=== PATIENT | male | born 1950 | race Caucasian/White ===

== ENCOUNTER 2023-01-03 04:56 | Day surgery (SDC) | payer OTHER ==
[2023-01-01 09:33] VITALS: BMI 23.0
[~2023-01-03 04:56] MED LIST: ACETAMINOPHEN 325 MG TABLET (FP) PO PRN; CHONDROITIN SU A/HYALUR SOD 1 KIT IO ONE; PHENYLEPHRINE/KETOROLAC 4 ML VIAL IO ONE
[2023-01-03] MEDS ORDERED: CYCLOPENTOLATE HCL 1% OPHTH SOLN 2 ML BOTTLE ONE (06:30)
[2023-01-03] MEDS ORDERED: PHENYLEPHRINE 2.5% OPTHALMIC DROP 2ML BOTTLE ONE (06:30)
[2023-01-03] MEDS ORDERED: KETOROLAC TROMETHAMINE 0.5% EYE DROP 1 DROP DROPS ONE (06:30)
[2023-01-03] MEDS ORDERED: TROPICAMIDE 1% OPHTH SOLN 15 ML BOTTLE ONE (06:30)
[2023-01-03] MEDS ORDERED: OFLOXACIN 0.3% OPHTHALMIC SOLUTION 5 ML BOTTLE ONE (06:31)
[2023-01-03 06:32] VITALS: RESP 20; TEMP 98.2
[2023-01-03] MEDS ORDERED: TETRACAINE 0.5% OPHTH SOLN 2 ML BOTTLE ONE (07:20)
[2023-01-03] MEDS ORDERED: PHENYLEPHRINE/KETOROLAC 4 ML VIAL IO ONE ×3 (07:20→09:52)
[2023-01-03] MEDS ORDERED: BSS (NA/CA/MG/K) BALANCED SALT SOLUTION OPHTH SOLN 15 ML BOTTLE ONE (07:20)
[2023-01-03] MEDS ORDERED: POVIDONE-IODINE 5% OPHTHALMIC PREP 30 ML SOLUTION ONE (07:20)
[2023-01-03] MEDS: CYCLOPENTOLATE HCL 1% OPHTH SOLN 2 ML BOTTLE OP SCH ×3 (07:21→07:57)
[2023-01-03] MEDS: PHENYLEPHRINE 2.5% OPHTH SOLN 15 ML BOTTLE OP SCH ×3 (07:22→07:57)
[2023-01-03] MEDS: TROPICAMIDE 1% OPHTH SOLN 15 ML BOTTLE OP SCH ×3 (07:22→07:57)
[2023-01-03] MEDS: KETOROLAC TROMETHAMINE 0.5% EYE DROP 1 DROP DROPS OP SCH ×3 (07:22→07:57)
[2023-01-03] MEDS: OFLOXACIN 0.3% OPHTHALMIC SOLUTION 5 ML BOTTLE OP SCH ×3 (07:22→07:58)
[2023-01-03] MEDS ORDERED: TETRACAINE 0.5% OPHTH SOLN 2 ML BOTTLE TP ONE (09:34)
[2023-01-03] MEDS ORDERED: MIDAZOLAM HCL 2 MG/2 ML SINGLE DOSE VIAL ONE (09:35)
[2023-01-03] MEDS ORDERED: POVIDONE-IODINE 5% OPHTHALMIC PREP 30 ML SOLUTION OS ONE (09:36)
[2023-01-03] MEDS ORDERED: LIDOCAINE HCL 1% PRESERVATIVE FREE - 30ML VIAL IO ONE (09:42)
[2023-01-03] MEDS ORDERED: BSS (NA/CA/MG/K) BALANCED SALT SOLUTION OPHTH SOLN 15 ML BOTTLE OS ONE (09:42)
[2023-01-03] MEDS ORDERED: CHONDROITIN SU A/HYALUR SOD 1 KIT IO ONE ×2 (09:50→09:52)
[2023-01-03 11:16] VITALS: BP 142/75; PULSE 73
== END 2023-01-03 12:00 | disposition home or self-care (01) ==
LOC: JASU-SURG 04:56
PROVIDERS: ATTEND Ophthalmology
PROC: 08RK3JZ Replacement of Left Lens with Synthetic Substitute, Percutaneous Approach (ICD-10-PCS; principal; 2023-01-03 09:00)
DX: H26.9 Unspecified cataract (principal)
CPT/HCPCS: J1097; V2632

== ENCOUNTER 2023-01-17 04:33 | Day surgery (SDC) | payer OTHER ==
[2023-01-16 14:32] VITALS: BMI 23.0
[~2023-01-17 04:33] MED LIST changes: -CHONDROITIN SU A/HYALUR SOD 1 KIT IO ONE; -PHENYLEPHRINE/KETOROLAC 4 ML VIAL IO ONE
[2023-01-17] MEDS ORDERED: POVIDONE-IODINE 5% OPHTHALMIC PREP 30 ML SOLUTION ONE (07:28)
[2023-01-17] MEDS ORDERED: TETRACAINE 0.5% OPHTH SOLN 2 ML BOTTLE ONE (07:28)
[2023-01-17] MEDS ORDERED: PHENYLEPHRINE/KETOROLAC 4 ML VIAL IO ONE ×2 (07:28→12:04)
[2023-01-17] MEDS ORDERED: LIDOCAINE HCL/PF 1% SDV 5ML VIAL ONE (07:38)
[2023-01-17] MEDS ORDERED: CYCLOPENTOLATE HCL 1% OPHTH SOLN 2 ML BOTTLE OP SCH (08:15)
[2023-01-17] MEDS ORDERED: PHENYLEPHRINE 2.5% OPHTH SOLN 15 ML BOTTLE OP SCH (08:15)
[2023-01-17] MEDS ORDERED: TROPICAMIDE 1% OPHTH SOLN 15 ML BOTTLE OP SCH (08:15)
[2023-01-17] MEDS ORDERED: OFLOXACIN 0.3% OPHTHALMIC SOLUTION 5 ML BOTTLE OP SCH (08:15)
[2023-01-17] MEDS ORDERED: KETOROLAC TROMETHAMINE 0.5% EYE DROP 1 DROP DROPS OP SCH (08:15)
[2023-01-17 08:54] VITALS: RESP 18
[2023-01-17] MEDS ORDERED: TROPICAMIDE 1% OPHTH SOLN 15 ML BOTTLE ONE (09:14)
[2023-01-17] MEDS ORDERED: CYCLOPENTOLATE HCL 1% OPHTH SOLN 2 ML BOTTLE ONE (09:14)
[2023-01-17] MEDS ORDERED: OFLOXACIN 0.3% OPHTHALMIC SOLUTION 5 ML BOTTLE ONE (09:14)
[2023-01-17] MEDS ORDERED: KETOROLAC TROMETHAMINE 0.5% EYE DROP 1 DROP DROPS ONE (09:14)
[2023-01-17] MEDS ORDERED: PHENYLEPHRINE 2.5% OPTHALMIC DROP 2ML BOTTLE ONE (09:14)
[2023-01-17] MEDS ORDERED: OFLOXACIN 0.3% OPHTHALMIC SOLUTION 5 ML BOTTLE OD ONE ×3 (09:20→09:41)
[2023-01-17] MEDS ORDERED: TROPICAMIDE 1% OPHTH SOLN 15 ML BOTTLE OD ONE ×3 (09:20→09:41)
[2023-01-17] MEDS ORDERED: CYCLOPENTOLATE HCL 1% OPHTH SOLN 2 ML BOTTLE OD ONE ×3 (09:20→09:41)
[2023-01-17] MEDS ORDERED: KETOROLAC TROMETHAMINE 0.5% EYE DROP 1 DROP DROPS OD ONE ×3 (09:20→09:41)
[2023-01-17] MEDS ORDERED: PHENYLEPHRINE 2.5% OPHTH SOLN 15 ML BOTTLE OD ONE ×3 (09:20→09:41)
[2023-01-17] MEDS ORDERED: MIDAZOLAM HCL 2 MG/2 ML SINGLE DOSE VIAL ONE (11:29)
[2023-01-17] MEDS ORDERED: TETRACAINE 0.5% OPHTH SOLN 2 ML BOTTLE TP ONE (11:46)
[2023-01-17] MEDS ORDERED: POVIDONE-IODINE 5% OPHTHALMIC PREP 30 ML SOLUTION OD ONE (11:48)
[2023-01-17] MEDS ORDERED: BSS (NA/CA/MG/K) BALANCED SALT SOLUTION OPHTH SOLN 15 ML BOTTLE OD ONE (11:56)
[2023-01-17] MEDS ORDERED: CHONDROITIN SU A/HYALUR SOD 1 KIT IO ONE (11:57)
[2023-01-17] MEDS ORDERED: LIDOCAINE HCL 1% PRESERVATIVE FREE - 30ML VIAL IO ONE (11:57)
[2023-01-17 13:30] VITALS: BP 118/60; PULSE 69; TEMP 97.8
== END 2023-01-17 14:05 | disposition home or self-care (01) ==
LOC: JASU-SURG 04:33
PROVIDERS: ATTEND Ophthalmology
PROC: 08RJ3JZ Replacement of Right Lens with Synthetic Substitute, Percutaneous Approach (ICD-10-PCS; principal; 2023-01-17 11:00)
DX: H26.9 Unspecified cataract (principal)
CPT/HCPCS: 66984; V2632; J1097

== ENCOUNTER 2023-06-02 10:10 | Emergency (ER) | payer OTHER ==
[2023-06-02 10:22] VITALS: BP 138/81; PULSE 88; RESP 20; TEMP 97.5; BMI 22.3
== END 2023-06-02 11:32 | disposition home or self-care (01) ==
LOC: JERFT 10:10
DX: M25.561 Pain in right knee (principal); G89.29 Other chronic pain; M17.11 Unilateral primary osteoarthritis, right knee
CPT/HCPCS: 73562-TC-RT-FY; 99283-25

== ENCOUNTER 2023-09-25 09:43 | Emergency (ER) | payer OTHER ==
[2023-09-25 09:49] VITALS: BP 139/75; PULSE 89; RESP 16; TEMP 97.8; BMI 21.7
[2023-09-25 10:57] LABS: PH,URINE 6.5 (5.0-8.0); URINE APPEARANCE CLEAR; URINE BILIRUBIN NEGATIVE (NEGATIVE); URINE COLOR YELLOW; URINE GLUCOSE (UA) NEGATIVE (NEGATIVE); URINE KETONE NEGATIVE (NEGATIVE); URINE LEUK ESTERASE NEGATIVE (NEGATIVE); URINE NITRITE NEGATIVE (NEGATIVE); URINE PROTEIN TRACE (NEGATIVE)
[2023-09-25] MEDS ORDERED: ACETAMINOPHEN 325 MG TABLET (FP) ONE (11:50)
[2023-09-25] MEDS: ACETAMINOPHEN 325 MG TABLET (FP) PO ONE (11:57)
[2023-09-25 12:15] LABS: BASO % 1.1 % (0-2.0); EOS % 1.6 % (0-4.5); HEMATOCRIT 37.2 % (35.4-49); HEMOGLOBIN 13.1 GM/dL (11.7-16.9); LYMPH % 12.3 % (8-40); MCH 31.8 pg (25.7-33.7); MCHC 35.1 g/dl (32.0-35.9); MEAN CELL VOLUME 90.6 fl (80-96); MEAN PLT VOLUME 8.7 fl (7.5-11.1); MONO % 10.1 % (3.8-10.2); NEUT % 74.9 % (42.8-82.8); PLATELET COUNT 154 10^3/uL (134-434); RBC 4.11 M/mm3 (4.00-5.60); RDW 12.4 % (11.9-15.9); WHITE BLOOD COUNT 4.7 K/mm3 (4.0-10.0)
[2023-09-25 12:25] LABS: POTASSIUM 4.4 mmol/L (3.5-5.1)
[2023-09-25 12:27] LABS: CALCIUM 9.1 mg/dL (8.5-10.1)
[2023-09-25 12:28] LABS: ALBUMIN 4.1 g/dl (3.4-5.0); BLOOD UREA NITROGEN 24.2 mg/dL (7-18)
[2023-09-25 12:31] LABS: CREATININE 0.7 mg/dL (0.55-1.3)
[2023-09-25 12:32] LABS: BILIRUBIN,TOTAL 0.4 mg/dL (0.2-1); TOT PROT 6.7 g/dl (6.4-8.2)
== END 2023-09-25 13:51 | disposition home or self-care (01) ==
LOC: JER 09:43
DX: R10.32 Left lower quadrant pain (principal); K59.00 Constipation, unspecified
CPT/HCPCS: 36415; 74177-TC; 80053; 81003; 85025; 87086; 99285-25

== ENCOUNTER 2024-04-24 08:16 | Emergency (ER) | payer OTHER ==
[2024-04-24 08:36] VITALS: BP 141/71; PULSE 91; RESP 18; TEMP 98.4; BMI 24.7
[2024-04-24] MEDS ORDERED: LIDOCAINE 5% TOPICAL PATCH ONE (09:07)
[2024-04-24] MEDS ORDERED: ACETAMINOPHEN INJECTION 100 ML ONE (09:07)
[2024-04-24] MEDS: ACETAMINOPHEN 1000 MG/100 ML BAG IVPB ONE (09:25)
[2024-04-24] MEDS: LIDOCAINE 5% TOPICAL PATCH TP ONE (09:25)
[2024-04-24 09:29] LABS: HEMATOCRIT 41.8 % (35.4-49); HEMOGLOBIN 14.7 GM/dL (11.7-16.9); MCH 30.8 pg (25.7-33.7); MCHC 35.2 g/dl (32.0-35.9); MEAN CELL VOLUME 87.3 fl (80-96); MEAN PLT VOLUME 8.6 fl (7.5-11.1); PLATELET COUNT 167 10^3/uL (134-434); RBC 4.79 M/mm3 (4.00-5.60); RDW 12.4 % (11.9-15.9); WHITE BLOOD COUNT 7.3 K/mm3 (4.0-10.0)
[2024-04-24 09:38] LABS: INR 1.11 (0.83-1.09); PROTHROMBIN TIME (PATIENT) 12.2 SEC (9.7-13.0)
[2024-04-24 09:47] LABS: POTASSIUM 4.3 mmol/L (3.5-5.1)
[2024-04-24 09:49] LABS: ALBUMIN 4.3 g/dl (3.4-5.0); CALCIUM 9.9 mg/dL (8.5-10.1)
[2024-04-24 09:53] LABS: CREATININE 0.9 mg/dL (0.55-1.3)
[2024-04-24 09:54] LABS: TOT PROT 7.3 g/dl (6.4-8.2)
[2024-04-24] MEDS ORDERED: KETOROLAC TROMETHAMINE 15 MG/ML VIAL ONE (11:53)
[2024-04-24] MEDS: KETOROLAC TROMETHAMINE 15 MG/ML VIAL IVPUSH ONE (11:58)
== END 2024-04-24 13:29 | disposition home or self-care (01) ==
LOC: JER 08:16
PROC: 3E033NZ Introduction of Analgesics, Hypnotics, Sedatives into Peripheral Vein, Percutaneous Approach (ICD-10-PCS; principal; 2024-04-24)
PROC: 3E0333Z Introduction of Anti-inflammatory into Peripheral Vein, Percutaneous Approach (ICD-10-PCS; 2024-04-24)
DX: R07.9 Chest pain, unspecified (principal); M54.2 Cervicalgia
CPT/HCPCS: 36415; 71046-TC-FY; 80053; 84484; 85025; 85610; 85730; 93005; 93010; 99285-25; J0131

== ENCOUNTER 2024-07-07 09:48 | Emergency (ER) | payer OTHER ==
[2024-07-07 10:03] VITALS: BP 148/76; PULSE 93; RESP 18; TEMP 98; BMI 23.0
[2024-07-07] MEDS ORDERED: LIDOCAINE HCL 1%, 10 MG/ML (20ML VIAL) ONE (10:27)
[2024-07-07] MEDS ORDERED: MORPHINE SULFATE 2 MG/ML SYRINGE ONE (10:28)
[2024-07-07] MEDS: LIDOCAINE HCL 1%, 10 MG/ML (50 mL VIAL) SQ ONE (10:36)
[2024-07-07] MEDS: morphine CARPU-JECT 2 MG/1 ML DISP.SYRIN IVPUSH ONE (10:50)
== END 2024-07-07 11:56 | disposition home or self-care (01) ==
LOC: JER 09:48
PROC: 0RSWXZZ Reposition Right Finger Phalangeal Joint, External Approach (ICD-10-PCS; principal; 2024-07-07)
DX: S63.282A Dislocation of proximal interphalangeal joint of right middle finger, initial encounter (principal); S80.211A Abrasion, right knee, initial encounter; S69.91XA Unspecified injury of right wrist, hand and finger(s), initial encounter; W01.0XXA Fall on same level from slipping, tripping and stumbling without subsequent striking against object, initial encounter
CPT/HCPCS: 26770; 73130-TC-RT-FY; 73140-TC-RT-FY; 99283-25